=== PATIENT | female | born 2000 | race Caucasian/White ===

== ENCOUNTER 2019-12-29 08:54 | Outpatient (CLI) | payer BC ==
--- NOTE | 2019-12-29 15:06 | MRI ---
MRI OF THE BRAIN WITHOUT AND WITH CONTRAST: 12/29/19 HISTORY: Galactorrhea. Liquid coming out of the breast for months when going on long walks. TECHNIQUE: Multiplanar and multisequence MR images were obtained of the brain without and with IV contrast. FINDINGS: The brain demonstrates normal signal intensity on all obtained sequences. No restricted diffusion or abnormal enhancement are seen. Thin cuts through the pituitary gland shows a midline pituitary stalk without evidence of pituitary m ass. There is no evidence of hydrocephalus, intracranial hemorrhage, or extra-axial fluid collection. No a bnormal enhancement seen. The expected flow voids are present. The corpus callosum and craniocervical junction are unremarkable. The calvarium and overlying soft tissues are unremarkable. The visualized paranasal sinuses and masto id air cells are well aerated. IMPRESSION: Normal MRI of the brain. POS: EAA
== END 2019-12-29 08:55 | disposition home or self-care (01) ==
LOC: SCSMRI 08:54
PROVIDERS: ATTEND Internal Medicine Endocrinology, Diabetes & Metabolism
DX: N64.3 Galactorrhea not associated with childbirth (principal)
CPT/HCPCS: 70553